=== PATIENT | female | born 1985 ===

== ENCOUNTER 2017-12-14 02:30 | Emergency (ER) | payer SELFPAY ==
[2017-12-14 02:30] VITALS: BMI 28.0
[2017-12-14 02:50] VITALS: RESP 18; O2SAT 100
[2017-12-14] MEDS ORDERED: Naproxen 500 MG TAB PO STA (03:34)
[2017-12-14] MEDS ORDERED: Dexamethasone 4 mg/1 ml IM STA (03:34)
--- NOTE | 2017-12-14 03:47 | ED PDOC ---
HPI: CCC, URI, Sore Throat Time Seen by Provider: 12/14/17 03:17 Chief Complaint (Nursing): ENT Problem Chief Complaint (Provider): ENT Problem History Per: Patient History/Exam Limitations: no limitations Onset/Duration Of Symptoms: Days (x1) Additional Complaint(s): Patient is a 32 y/o female with no significant past medical history presenting to the ED for evaluation of sore throat since yesterday afternoon associated with tactile fever and pain swallowing. Patient took Advil for symptoms at around 19:00. Patient reports she had a brief (10-20 minute) episode of lower abdominal pain prior to arrival but resolved at ED. She denies urinary symptoms , nausea, vomiting, diarrhea, cough, sick contact, or rash. Patient did however report she had intermittent ear pain bilaterally. Her last normal menstrual period was 11/11/17. PMD: None Past Medical History Reviewed: Historical Data, Nursing Documentation, Vital Signs Vital Signs: Last Vital Signs Temp 100 F H 12/14/17 02:47 Pulse 99 H 12/14/17 02:47 Resp 18 12/14/17 02:47 BP 100/66 12/14/17 02:47 Pulse Ox 100 12/14/17 02:47 - Medical History PMH: No Chronic Diseases - Surgical History Surgical History: No Surg Hx - Family History Family History: States: Unknown Family Hx - Social History Current smoker - smoking cessation education provided: No Alcohol: Social Drugs: Denies - Immunization History Hx Tetanus Toxoid Vaccination: No - Home Medications Home Medications: Ambulatory Orders Medication Instructions Recorded Ibuprofen [Motrin Tab] 600 mg PO Q6 PRN #30 tab 03/07/16 - Allergies Allergies/Adverse Reactions: Allergies Allergy/AdvReac Type Severity Reaction Status Date / Time No Known Allergies Allergy Verified 03/05/16 19:55 Review of Systems ROS Statement: Except As Marked, All Systems Reviewed And Found Negative Constitutional: Positive for: Fever ENT: Positive for: Throat Pain Respiratory: Negative for: Cough Gastrointestinal: Positive for: Abdominal Pain (brief episode resolved now). Negative for: Nausea, Vomiting, Diarrhea Genitourinary Female: Negative for: Dysuria, Frequency, Incontinence Skin: Negative for: Rash Physical Exam - Reviewed Nursing Documentation Reviewed: Yes Vital Signs Reviewed: Yes - Physical Exam Comments: GENERAL APPEARANCE: Patient is awake, alert, oriented x 3, resting comfortably in no acute distress. SKIN: Warm, dry; (-) cyanosis, (-) rash. (-) Decubitus Ulcer EYES: (-) conjunctival pallor, (-) scleral icterus, (-) conjunctival hemorrhage. ENMT: 3+ bilateral tonsillar hypertrophy; TM: (-) bulging, (-) erythema; (+) pharyngeal erythema, (-) exudate. Uvula is midline NECK: (-) tenderness, (-) stiffness, (-) meningismus, (-) lymphadenopathy. ABDOMEN AND GI: Soft; (+) suprapubic tenderness, EXTREMITIES: (-) deformity; full ROM NEURO AND PSYCH: Mental status as above; (-) focal findings. - ECG O2 Sat by Pulse Oximetry: 100 (RA) Pulse Ox Interpretation: Normal Medical Decision Making Medical Decision Making: Time: 03:29 Impression: Pharyngitis; lower abdominal pain Initial Plan: --Urine --Decadron --Naproxen --Throat culture --Urine culture --Rapid strep group --UA Scribe Attestation: Documented by Yahir Tee, acting as a scribe for Vivienne Prasad PA-C. Provider Scribe Attestation: All medical record entries made by the Scribe were at my direction and personally dictated by me. I have reviewed the chart and agree that the record accurately reflects my personal performance of the history, physical exam, medical decision making, and the department course for this patient. I have also personally directed, reviewed, and agree with the discharge Disposition - Disposition
--- NOTE | 2017-12-14 04:00 | ED PDOC ---
HPI: CCC, URI, Sore Throat Time Seen by Provider: 12/14/17 03:17 Chief Complaint (Nursing): ENT Problem Chief Complaint (Provider): ENT Problem History Per: Patient History/Exam Limitations: no limitations Onset/Duration Of Symptoms: Days (x1) Additional Complaint(s): Patient is a 32 y/o female with no significant past medical history presenting to the ED for evaluation of sore throat since yesterday afternoon associated with tactile fever and pain on swallowing. Patient took Advil for symptoms around 19:00 with minimal relief. Patient reports she had a brief (10-20 minute ) episode of lower abdominal pain prior to arrival that resolved. She denies urinary symptoms, nausea, vomiting, diarrhea, cough, sick contact, or rash. Patient did however report she had intermittent ear pain bilaterally. PMD: None LMP: Now Past Medical History Reviewed: Historical Data, Nursing Documentation, Vital Signs Vital Signs: Last Vital Signs Temp 98.4 F 12/14/17 06:06 Pulse 92 H 12/14/17 06:06 Resp 18 12/14/17 06:06 BP 104/60 12/14/17 06:06 Pulse Ox 100 12/14/17 06:06 - Medical History PMH: No Chronic Diseases - Surgical History Surgical History: No Surg Hx - Family History Family History: States: Unknown Family Hx - Social History Current smoker - smoking cessation education provided: No Alcohol: Social Drugs: Denies - Home Medications Home Medications: Ambulatory Orders Medication Instructions Recorded Ibuprofen [Motrin Tab] 600 mg PO Q6 PRN #30 tab 03/07/16 Amoxicillin 875 mg PO BID #14 tablet 12/14/17 Naproxen 500 mg PO BID PRN #20 tab 12/14/17 - Allergies Allergies/Adverse Reactions: Allergies Allergy/AdvReac Type Severity Reaction Status Date / Time No Known Allergies Allergy Verified 03/05/16 19:55 Review of Systems ROS Statement: Except As Marked, All Systems Reviewed And Found Negative Constitutional: Positive for: Fever ENT: Positive for: Throat Pain Respiratory: Negative for: Cough Gastrointestinal: Positive for: Abdominal Pain (brief episode, resolved now). Negative for: Nausea, Vomiting, Diarrhea Genitourinary Female: Negative for: Dysuria, Frequency, Incontinence Skin: Negative for: Rash Physical Exam - Reviewed Nursing Documentation Reviewed: Yes Vital Signs Reviewed: Yes - Physical Exam Comments: GENERAL APPEARANCE: Patient is awake, alert, oriented x 3, resting comfortably in no acute distress. SKIN: Warm, dry; (-) cyanosis, (-) rash EYES: (-) conjunctival pallor, (-) scleral icterus, (-) conjunctival hemorrhage. ENMT: Pharynx: clear, uvula midline (+) 3+ bilateral tonsillar hypertrophy (+) pharyngeal erythema, (-) exudate; TMs: (-) bulging, (-) erythema. Nares patent. NECK: Supple, FROM (-) tenderness, (-) stiffness, (-) meningismus, (+) anterior cervical lymphadenopathy. ABDOMEN AND GI: Soft; bowel sounds active x4 (-) tenderness, (-) guarding (-) distention (-) CVA tenderness EXTREMITIES: (-) deformity CARDIAC: (-) irregularity RESPIRATORY: (-) rales (-) rhonchi (-) wheezing; lungs clear to auscultation bilaterally. Respirations even and nonlabored, speaking in full sentences. NEURO AND PSYCH: Mental status as above; (-) focal findings. Gait steady, speech clear. - Laboratory Results Urine POC: Negative Urine dip results: Positive for: Leukocyte Esterase (trace), Blood (moderate), Ketones (40), Protein (30). Negative for: Nitrate, Glucose, Bilirubin - ECG O2 Sat by Pulse Oximetry: 100 (RA) Pulse Ox Interpretation: Normal Medical Decision Making Medical Decision Making: Time: 03:29 Impression: Pharyngitis; lower abdominal pain Initial Plan: --Urine --Decadron 10mg IM --Naproxen 500mg PO --Throat culture --Rapid strep 0343 Udip reviewed. U/A and U/C ordered. Upreg: negative 0535 Rapid Strep: (+) Amoxicillin 500mg PO and Tylenol 650mg PO administered. 0600 U/A (+) hematuria but patient current menstruating (-) evidence of UTI Repeat HR: 87 Repeat Temp: 97.9 On re-evaluation, patient reports improvement of symptoms. On exam, patient remains AAOx3, in no acute distress. Lungs clear to auscultation, cardiac RRR, abdomen soft, non-tender, repeat neuro exam shows no focal findings. VSS, stable for discharge. Lab/Diagnostic results d/w the patient in great detail. Diagnosis of strep pharyngitis d/w the patient. Based on history, exam and diagnostic results, plan will be for outpatient follow up. Patient instructed to follow-up with pmd / referral provided / the clinic in 1- 2 days without fail. Advised to take medication as prescribed. Return to the emergency room at any time for any new or worsening symptoms. Patient states she fully agrees with and understands discharge instructions. States that she agrees with the plan and disposition. Verbalized and repeated discharge instructions and plan. I have given the patient opportunity to ask any additional questions. Scribe Attestation: Documented by Yahir Tee, acting as a scribe for Vivienne Prasad PA-C. Provider Scribe Attestation: All medical record entries made by the Scribe were at my direction and personally dictated by me. I have reviewed the chart and agree that the record accurately reflects my personal performance of the history, physical exam, medical decision making, and the department course for this patient. I have also personally directed, reviewed, and agree with the discharge Disposition - Clinical Impression Clinical Impression: Strep pharyngitis - Patient ED Disposition Is Patient to be Admitted: No Counseled Patient/Family Regarding: Studies Performed, Diagnosis, Need For Followup, Rx Given - Disposition Referrals: [facility] [Outside] Disposition: Routine/Home Disposition Time: 06:00 Condition: STABLE Additional Instructions: La atencin mdica de emergencia que recibi hoy se dirigi a los sntomas agudos de presentacin. Si le prescribieron algn medicamento, por favor ll danie y d bala se lo indic. Brandy sntomas pueden tardar varios zheng en resolverse. Regrese al Departamento de Emergencia en cualquier momento si los s ntomas empeoran, no mejoran o si surge algn otro problema. Comunquese con mg mdico en 2 zheng para anselmo reevaluacin y seguimiento / o llame a leander de los mdicos / clnicas a los que hines referido y que figura en el formulario de Informacin de visitas del paciente que se incluye en mg paquete de mili. Lleve todos los documentos que recibi al momento del mili junto con los medicamentos a mg visita de seguimiento. Nuestro tratamiento no puede reemplazar la atencin mdica en curso por parte de un proveedor de atencin primaria (PCP) fuera del departamento de emergencias. Prescriptions: Amoxicillin 875 mg PO BID #14 tablet Naproxen 500 mg PO BID PRN #20 tab PRN Reason: Pain, Moderate (4-7) Instructions: Sore Throat in Adults, Strep Throat (DC) Forms: [employer] (Chilean) Print Language: CITIZEN OF [place] - POA Present On Arrival: None Results - Lab Results Lab Results: 12/14/17 12/14/17 03:44 03:44 Urine Color Yellow Urine Clarity Cloudy Urine pH 6.0 Ur Specific [place] 1.011 Urine Protein Negative Urine Glucose (UA) Neg Urine Ketones 20 Urine Blood Moderate Urine Nitrate Negative Urine Bilirubin Negative Urine Urobilinogen 0.2-1.0 Ur Leukocyte Esterase Trace Urine RBC (Auto) 7 H Urine Microscopic WBC 14 H Ur Squamous Epith Cells 9 H Urine Bacteria Rare Grp A Beta Strep Ag Positive H
[2017-12-14 05:40] LABS: SQUAMOUS EPITHIAL 9 /hpf (0-5); URINE BACTERIA RARE (<OCC); URINE BILIRUBIN NEGATIVE (NEGATIVE); URINE BLOOD MODERATE (NEGATIVE); URINE CLARITY CLOUDY (Clear); URINE COLOR YELLOW (YELLOW); URINE GLUCOSE (UA) NEG (Normal); URINE LEUKOCYTE ESTERASE TRACE Leu/uL (Negative); URINE PROTEIN NEGATIVE (NEGATIVE); URINE UROBILINOGEN 0.2-1.0 mg/dL (0.2-1.0)
[2017-12-14 06:07] VITALS: BP 104/60; PULSE 92; TEMP 98.4
== END 2017-12-14 06:07 | disposition home or self-care (01) ==
LOC: H.ER 02:30
DX: J02.0 Streptococcal pharyngitis (principal)
CPT/HCPCS: 81003; 81025; 87086; 87430; 96372; 99283; J1100